=== PATIENT | male | born 1980 | race Caucasian/White ===

== ENCOUNTER 2016-08-12 00:11 | Emergency (ER) | payer SELFPAY ==
[2016-08-12 00:26] LABS: ABSOLUTE BASOPHILS # (AUTO) 0.1 10^3/uL (0.0-0.2); ABSOLUTE EOSINOPHILS # (AUTO) 0.1 10^3/uL (0.0-0.6); ABSOLUTE LYMPHOCYTES (AUTO) 1.5 10^3/uL (0.5-4.7); ABSOLUTE MONOCYTES (AUTO) 0.4 10^3/uL (0.1-1.4); ABSOLUTE NEUT (AUTO) 3.5 10^3/uL (1.7-8.2); HEMATOCRIT 39.7 % (37.9-51.0); HEMOGLOBIN 13.5 g/dL (13.5-17.0); HGB HCT DIFFERENCE 0.8; LYMPHOCYTES % (AUTO) 26.4 % (13-45); MEAN CORPUSCULAR HEMOGLOBIN 28.2 pg (27.0-33.4); MEAN CORPUSCULAR HGB CONC 33.9 g/dL (32.0-36.0); MEAN CORPUSCULAR VOLUME 83 fl (80-97); MONOCYTES % (AUTO) 7.2 % (3-13); RED BLOOD COUNT 4.77 10^6/uL (4.35-5.55); RED CELL DISTRIBUTION WIDTH 14.2 % (11.5-14.0); SEGMENTED NEUTROPHILS % (AUTO) 63.4 % (42-78); WHITE BLOOD COUNT 5.6 10^3/uL (4.0-10.5)
[2016-08-12] MEDS ORDERED: NALOXONE HCL INJ 2 MG/2 ML DISP.SYRIN ONE (00:26)
[2016-08-12] MEDS ORDERED: NALOXONE HCL INJ 2 MG/2 ML DISP.SYRIN IV ONE (00:29)
--- NOTE | 2016-08-12 00:29 | ER Document Report ---
ED General - General Chief Complaint: Overdose Stated Complaint: POSSIBLE OVERDOSE Notes: Patient is a 35 year old male who presents via ambulance for suspected overdose. He was found lying on the bathroom floor in [facility]. TRAVEL OUTSIDE OF THE [place] IN LAST 30 DAYS: No - Related Data Allergies/Adverse Reactions: sertraline HCl [From Zoloft] Allergy (Verified 11/15/15 04:08) Past Medical History - Social History Smoking Status: Unknown if Ever Smoked Frequency of alcohol use: unknown Drug Abuse: Other - unknown Family History: Reviewed & Not Pertinent Psychiatric Medical History: Reports: Hx Anxiety, Hx Bipolar Disorder, Hx Depression - Immunizations Hx Diphtheria, Pertussis, Tetanus Vaccination: No Review of Systems - Review of Systems -: Yes ROS unobtainable due to patient's medical condition Physical Exam - Vital signs Vitals: Resp Pulse Ox 17 99 08/12/16 00:17 08/12/16 00:17 - Notes Notes: General Appearance: Patient sleeping in bed. Patient responsive to some painful stimuli. Patient unresponsive to voice. Vitals: reviewed, See vital signs table. Head: no swelling or tenderness to the head. No evidence of trauma. Eyes: Pupils small but reactive to light. Pupils equal., EOMI, Conjuctiva clear Mouth: No decreasd moisture Neck: Supple, no neck tenderness, No thyromegaly Lungs: No wheezing, No rales, No rhonci, No accessory muscle use, good air exchange bilaterally. Heart: Normal rate, Regular rythm, No murmur, no rub Abdomen: Normal BS, soft, No rigidity, No abdominal tenderness, No guarding, no rebound, no abdominal masses, no organomegaly Extremities: good pulses in all extremities, no swelling or tenderness in the extremities, no edema. Skin: warm, dry, appropriate color, no rash Neuro: Patient is unresponsive except for to painful stimuli. Will not follow commands. Course - Re-evaluation Re-evalutation: 08/12/16 00:34 I discussed have more information. Patient was actually not found unresponsive on bathroom floor normal. Please found acting strange and [employer]. Please recall. Patient formed a place that he took care when, cocaine, and alcohol. He never had any trauma. CT scans are not needed at this time. I did give the patient a small dose of Narcan and he has awoken some. - Vital Signs Vital signs: Temp Pulse Resp BP Pulse Ox 17 127/91 H 98 08/12/16 05:00 08/12/16 01:02 08/12/16 05:00 - Laboratory Result Diagrams: 08/12/16 00:15 08/12/16 00:15 Laboratory results interpreted by me: 08/12/16 08/12/16 00:15 00:15 RDW 14.2 H BUN 23 H Total Bilirubin 1.4 H AST 76 H ALT 84 H Salicylates < 1.0 L Acetaminophen < 10 L - EKG Interpretation by Me Additional EKG results interpreted by me: 08/12/16 00:36 EKG is reviewed and interpreted by me. EKG shows normal sinus rhythm with rate of [address] segment elevation or depression. No ischemic T wave inversions. NC interval, QRS duration, QTC dexter are within normal range. Old EKG for comparison is from 11/15/2015. - Transfer of Care Notes: 08/12/16 06:49 Patient's awake and alert neck area properly. His own complaint is of a headache. Suspect this is probably hangover from his drug and alcohol abuse from last night; however, he did use cocaine and therefore I do think it's appropriate to obtain a CT scan of his head. CT scan has been ordered. 08/12/16 07:19 CT scan is negative. I did get patient up and walked him. He is still wobbly on his feet. He complains of total body pain which is not surprising being that he had received Narcan and had admitted to the paramedics that he used multiple different drugs. At this time we will give him some IV fluids, give him something to eat, and then reevaluate him to make sure he is up and walking normally before discharge him. Discharge - Discharge Clinical Impression: Polysubstance abuse Condition: Good Disposition: HOME, SELF-CARE Additional Instructions: Please avoid abusing drugs. Continued use of things such as cocaine, heroin, and alcohol can lead to . Please return to ER if you have fevers, vomiting , difficulty breathing, or feel unwell. I have provided information to [facility] [place]. They are a outpatient drug rehabilitation center. Please follow-up with them as able likely be able to help you with any addiction that you have. Forms: Smoking Cessation Education
[2016-08-12] MEDS ORDERED: NORMAL SALINE 1000 ML 1,000 ML IV ONE ×2 (00:32→07:16)
[2016-08-12 00:44] LABS: ALANINE AMINOTRANSFERASE 84 U/L (21-72); ALBUMIN 4.2 g/dL (3.5-5.0); ALKALINE PHOSPHATASE 60 U/L (38-126); ANION GAP 12 (5-19); ASPARTATE AMINO TRANSFERASE 76 U/L (17-59); BILIRUBIN,TOTAL 1.4 mg/dL (0.2-1.3); BLOOD UREA NITROGEN 23 mg/dL (7-20); CALCIUM 9.4 mg/dL (8.4-10.2); CARBON DIOXIDE 24 mmol/L (22-30); CHLORIDE 103 mmol/L (98-107); CREATININE RESULT 0.89 mg/dL (0.52-1.25); GLUCOSE 85 mg/dL (75-110); SODIUM 138.9 mmol/L (137-145); TOTAL PROTEIN 6.7 g/dL (6.3-8.2)
[2016-08-12 00:45] LABS: ALCOHOL < 10 mg/dL (NONE DETECTED)
[2016-08-12] MEDS ORDERED: ONDANSETRON HCL INJ/PF 4 MG/2 ML SDV IV ONE (07:16)
[2016-08-12 07:51] LABS: APPEARANCE,URINE CLEAR; BILIRUBIN,URINE NEGATIVE (NEGATIVE); GLUCOSE, URINE NEGATIVE (NEGATIVE); KETONES,URINE 20 mg/dL (NEGATIVE); LEUKOCYTE ESTERASE,URINE NEGATIVE (NEGATIVE); NITRITE,URINE NEGATIVE (NEGATIVE); PROTEIN,URINE NEGATIVE (NEGATIVE); URINE SPECIFIC GRAVITY 1.029; UROBILINOGEN,URINE NEGATIVE mg/dL (<2.0)
[2016-08-12 08:06] LABS: URINE BARBITURATES SCREEN NEGATIVE; URINE METHADONE SCREEN NEGATIVE; URINE OPIATES LOW UNCONFIRMED POSITIVE; URINE PHENCYCLIDINE SCREEN NEGATIVE
--- NOTE | 2016-08-12 08:57 | PSYCHOLOGICAL NOTE ---
Psych Note - Psych Note Psych Note: Patient presented via ambulance for suspected overdose. He was found lying on the bathroom floor in [facility]. Patient states that he had an argument with his girlfriend. He continued disclosed that he has been "trying to help her." He stated argument was over "she was losing her baby." Because the "baby silvia is an ." continue disclosed that she will be leaving for rehabilitation and the argument was over pills. Patient has been using marijuana for 14 years, crack cocaine for 17 years, and hair 1 for the last 6 months. Patient disclosed these had 1 prior inpatient rehabilitation however was unwilling to provide any further information to clinician. Patient states he is not suicidal and does not want to hurt himself. Patient is semi-alert but orientated to person place time and circumstance. Mood is irritable with flat affect. Patient denies suicidal and homicidal ideation. Patient denies auditory visual hallucinations; no delusions are noted. Thought process is guarded. Conversational speech was slow and at times mumbled. Patient's eyes were closed throughout entire evaluation. Intellectual abilities appear to be within average range. Attention and concentration are poor. Insight, judgment, impulse control are poor. Polysubstance abuse 292.9 (F12.99) Unspecified Cannabis-related Disorder 292.9 (F11.99) Unspecified Opiate Related Disorder; heroin 292.9 (F14.99) Unspecified Stimulant Related Disorder; cocaine Impression\\plan: Patient is psychiatrically cleared for discharge. Patient has a long history of substance abuse with multiple substances to include marijuana crack cocaine and heroin. Patient denies suicidal homicidal ideation. At this time patient does not meet IVC criteria per [place] GS 122. Patient provided local resources for drug abuse assistance. Attending physician is in agreement with recommendations and disposition.
--- NOTE | 2016-08-12 09:26 | EKG REPORT ---
SEVERITY:- BORDERLINE ECG - SINUS RHYTHM BORDERLINE PROLONGED QT INTERVAL : Confirmed by: Lawrence Back 12-Aug-2016 09:25:15
[2016-08-12 10:05] VITALS: BP 135/93
== END 2016-08-12 10:06 | disposition home or self-care (01) ==
LOC: ER 00:11
DX: F14.10 Cocaine abuse, uncomplicated (principal); F10.10 Alcohol abuse, uncomplicated; R51 Headache
CPT/HCPCS: 93005; 99285; 96361; 96374; 36415; 80307 ×4; 85025; 80053; 81001; 70450; 93010; J2405; J2310; J7030; L0172